=== PATIENT | male | born 1975 | race Caucasian/White ===

== ENCOUNTER 2016-10-25 12:15 | Emergency (ER) | payer MEDICAID ==
[~2016-10-25] VITALS: Ht 165.1 cm; Wt 54.0 kg
[2016-10-25 12:45] VITALS: Ht 165.1 cm; Wt 54.0 kg
[2016-10-25 15:59] VITALS: BP 129/68; PULSE 71; RESP 18; TEMP 98.5
--- NOTE | 2016-10-25 17:39 | ERA ---
ER Documentation Chief Complaint Date/Time DATE: 10/25/16 TIME: 17:35 Chief Complaint PT HAS JAW WIRED SHUT, MISSED FOLLOW UP APPOINMENT HPI Patient is a 41-year-old male presenting status post maxillofacial surgery 1 month. 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 Patient is presenting with his who is a historian. Complains that the surgeon will no longer see him because he does not have insurance. Patient's mouth is still wired shut from the surgery. Patient has no current complaints besides inability for postop care. ROS All systems reviewed and are negative except as per history of present illness. PMhx/Soc Medical and Surgical Hx: pt denies Medical Hx, pt denies Surgical Hx Hx Alcohol Use: No Hx Substance Use: No Hx Tobacco Use: No Smoking Status: Never smoker Physical Exam Vitals Vital Signs Date Time Temp Pulse Resp B/P Pulse Ox O2 Delivery O2 Flow Rate FiO2 10/25/16 15:59 98.5 71 18 129/68 99 Room Air 10/25/16 12:45 99.1 60 18 94/64 97 Physical Exam Const: Well-appearing 41-year-old male with his mouth shot. Head: Atraumatic Eyes: Normal Conjunctiva ENT: Normal External Ears, and nose. Mouth is wired shut from maxillofacial surgery. The intake sheet is poor but intact. Neck: Full range of motion..~ No meningismus. Resp: Clear to auscultation bilaterally Cardio: Regular rate and rhythm, no murmurs Abd: Soft, non tender, non distended. Normal bowel sounds Skin: No petechiae or rashes Back: No midline or flank tenderness Ext: No cyanosis, or edema Neur: Awake and alert Psych: Normal Mood and Affect Procedures/MDM Patient presents for postop wound care. Patient had maxillofacial surgery within the past month. Upon evaluation patient seems to be healing appropriately. Have suggested to the patient that he return to the original surgeon for postop wound care or to seek a specialist maxillofacial surgery for postop wound care. Patient is in no acute distress and has no complaints besides inability to obtain postop care. I do not suspect endangerment of the airway or infection at this time. Departure Diagnosis: Primary Impression: Visit for wound check Condition: Stable Patient Instructions: Post Op Wound Check, Pain Referrals: [facility] 7 a.m.- 11 p.m. Every Day of the Week NO APPOINTMENT OR AUTHORIZATION NEEDED Additional Instructions: Follow-up with surgeon for further management; If unable to see, seek a hospital who has a maxillofacial surgeon for more specific/specialized evaluation. See PCP in the next 1-3 days. JULIO CALLAHAN PA-C Oct 25, 2016 17:39
== END 2016-10-25 16:00 | disposition home or self-care (01) ==
LOC: FTE 12:15
DX: Z48.01 Encounter for change or removal of surgical wound dressing (principal)
CPT/HCPCS: 99281